=== PATIENT | female | born 1985 | race Caucasian/White ===

== ENCOUNTER 2017-01-08 16:14 | Emergency (ER) | payer OTHER ==
[~2017-01-08] VITALS: Ht 154.9 cm; Wt 47.6 kg
--- NOTE | 2017-01-08 17:37 | ED GI/GU/ABDOMINAL COMPLAINT ---
History of Present Illness General Chief Complaint: Abdominal Pain/Flank Pain Stated Complaint: ABD PAIN Source: patient Exam Limitations: no limitations Vital Signs & Intake/Output Vital Signs & Intake/Output Vital Signs Date Time Temp Pulse Resp B/P Pulse O2 O2 Flow FiO2 Ox Delivery Rate 01/08 1941 96.8 76 16 111/65 98 Room Air 01/08 1810 Room Air Room Air 01/08 1641 99.9 101 16 154/68 97 Room Air Allergies Coded Allergies: Sulfa (Sulfonamide Antibiotics) (Mild, RASH 01/08/17) doxycycline (Mild, GI UPSET 01/08/17) Reconcile Medications Norethindrone-E.estradiol-Iron (Minastrin 24 Fe Chewable Tab) 1 MG-20 MCG (24)/ 75 MG (4) TAB.CHEW 1 TAB PO DAILY IRON SUPPLEMENT (Reported) Ondansetron HCl (Zofran) 4 MG TABLET 1 TAB PO Q6-8P PRN NAUSEA Triage Note: RECEIVED 31 YO FEMALE HX IBS, OVARIAN CYSTS AND KIDNEY STONES, C/O SEVERE RLQ ABDOMINAL PAIN X 3 DAYS. STARTED GENERALIZES ABDOMINAL PAIN, NOW RLQ ONLY. + NAUSEA. Triage Nurses Notes Reviewed? yes ? N Is pt currently ? No Onset: Abrupt Duration: better Timing: recent history Quality/Severity: moderate Severity Numbers: 5 Radiation: no radiation Activities at Onset: none HPI: Patient is a 31-year-old female with a past medical history of IBS, kidney stones, ovarian cyst who presented to emergency with a 50 hour history of gradual onset of waxing and waning right-sided lower abdominal and pelvic pain. Patient initially thought it was her IBS where she took Gas-X which flatulence relieved her symptoms however the last day symptoms have been more severity of pain localized to the right lower quadrant patient has had decreased by mouth intake Last bowel movement was today no blood no melena noted. No change in symptoms after eating ibuprofen has relief symptoms Last menstrual period was 2 weeks ago. Denies any fevers chills dysuria hematuria vaginal bleeding vaginal discharge Patient states the nausea and pain has significantly improved prior to arrival Past History Travel History Traveled to [place] past 21 day No Medical History Any Pertinent Medical History? 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 No Review of Systems Review of Systems Constitutional: Reports: no symptoms. EENTM: Reports: no symptoms. Respiratory: Reports: no symptoms. Cardiovascular: Reports: no symptoms. GI: Reports: see HPI, abdominal pain. Genitourinary: Reports: no symptoms. Musculoskeletal: Reports: no symptoms. Skin: Reports: no symptoms. Neurological/Psychological: Reports: no symptoms. Hematologic/Endocrine: Reports: no symptoms. Immunologic/Allergic: Reports: no symptoms. All Other Systems: Reviewed and Negative Physical Exam Physical Exam General Appearance: no apparent distress, alert, comfortable Gastrointestinal: normal bowel sounds, soft, MILD RIGHT PELVIC PAIN nO REBOUND TENDERNESS NO PERITONEAL SIGNS NO RIGHT UPPER QUADRANT PAIN Comments: Well-developed well-nourished person in no acute distress HEENT: Normal EENT exam Neck: Supple, no lymphadenopathy, normal range of motion without pain or tenderness Back: Nontender, no CVA tenderness. Cardiovascular: Regular rate and rhythms no murmurs rubs or gallops, normal JVP Respiratory: Chest nontender. No respiratory distress.breath sounds clear to auscultation bilaterally Extremity: No edema, no calf tenderness to palpation, normal and equal pulses. Neuro: Alert oriented x3, motor sensory normal, Skin: No appreciable rash on exposed skin, skin is warm and dry. Psych: Mood and affect is normal, memory and judgment is normal. Core Measures ACS in differential dx? No Severe Sepsis Present: No Septic Shock Present: No Progress Differential Diagnosis: AAA, AMI, appendicitis, biliary colic, bowel obstruction , colon cancer, cholecystitis, diverticulitis, ectopic , endometritis, esophageal varices, gastritis, hepatitis, hernia, hemorrhoids, ischemic bowel, inflamm bowel dis, intrauterine , kidney stone, Maria Del Carmen-Melody tear, ovarian cyst, ovarian torsion, pancreatitis, PID/cervicitis, peptic ulcer, PUD/ GERD, perforated viscous, SBO, threatened AB, UTI/pyelo Plan of Care: Orders Procedure Date/time Status Add-on Test (ER Only) 01/08 1838 Active WESTERGREN SED RATE 01/08 1803 Complete C-REACTIVE PROTEIN 01/08 1803 Complete URINALYSIS 01/08 1738 Complete LIPASE 01/08 1737 Complete LACTIC ACID 01/08 1737 Complete HUMAN BETA HCG SCREEN 01/08 1737 Complete COMPREHENSIVE METABOLIC PANEL 01/08 1737 Complete CBC WITHOUT DIFFERENTIAL 01/08 1737 Complete AMYLASE 01/08 1737 Complete Laboratory Tests 01/08/171802: Anion Gap 12, Estimated GFR > 60, BUN/Creatinine Ratio 20.0, Glucose 91, Lactic Acid < 0.5 L, Calcium 9.5, Total Bilirubin 0.8, AST 20, ALT 29, Alkaline Phosphatase 51, C-Reactive Prot, Quant 8.7 H, Total Protein 7.3, Albumin 4.2, Globulin 3.1, Albumin/Globulin Ratio 1.4, Amylase 66, Lipase 84, Total Beta HCG NEGATIVE, CBC w Diff NO MAN DIFF REQ, RBC 4.34, MCV 87.3, MCH 30.8, RDW 12.8, MPV 8.1, Gran % 73.2, Lymphocytes % 18.6 L, Monocytes % 7.7, Eosinophils % 0.1, Basophils % 0.4, Absolute Granulocytes 8.1 H, Absolute Lymphocytes 2.1, Absolute Monocytes 0.9 H, Absolute Eosinophils 0, Absolute Basophils 0, PUBS MCHC 35.3, ESR Westergren 20 01/08/171801: Urine Color YEL, Urine Clarity CLEAR, Urine pH 6.0, Ur Specific [place] 1.015, Urine Protein TRACE H, Urine Ketones TRACE H, Urine Nitrite NEG, Urine Bilirubin NEG, Urine Urobilinogen 0.2, Ur Leukocyte Esterase NEG, Ur Microscopic SEDIMENT EXAMINED, Urine RBC RARE, Ur Epithelial Cells FEW, Urine Bacteria RARE H, Urine Hemoglobin NEG, Urine Glucose NEG Patient currently looks well nontoxic-appearing Afebrile Blood work was established no leukocytosis Ultrasound was unremarkable Patient declined pain medications and any nausea in the emergency room. I discussed with patient for approximately 10 minutes of worsening signs of appendicitis that she will return to the emergency room and my suspicion of this is low. Patient was able tolerate by mouth upon discharge. Upon discharge patient looks well no apparent distress and will comply with discharge instructions and had no questions. (SALUD VAN,MILLY) Diagnostic Imaging: Viewed by Me: Ultrasound. Radiology Impression: no acute abnormality Initial ED EKG: none Comments: PATIENT: THOMPSON FRANCOIS PRESENT AGE: 31 PATIENT ACCOUNT NO: [id number] : 85 LOCATION: [facility] ORDERING PHYSICIAN: MILLY VAN SERVICE DATE: 01/08/170363 EXAM TYPE: US - US-TRANSVAGINAL EXAMINATION: ULTRASOUND PELVIS CLINICAL INFORMATION: Right sided pelvic pain. LMP 12/25/2016. COMPARISON: None. TECHNIQUE: Real-time sonographic imaging of the uterus and bilateral adnexa via transvaginal and transabdominal approach. FINDINGS: The uterus is retroverted and measures 5.8 x 3.4 x 3.9 cm in sagittal, AP and transverse dimensions respectively, corresponding to a volume of 41 mL. The cervical length is 1.7 cm. The endometrial stripe measures 0.6 cm in thickness. The bilateral ovaries are visualized. The right ovary measures 3.0 x 1.2 x 1.6 cm, corresponding to a volume of 3.0 mL. The left ovary measures 2.4 x 1.0 x 2.0 cm, corresponding to a volume of 2.4 mL. Several small follicles are present within the bilateral ovaries. Arterial and venous flow are demonstrated within both ovaries. Moderate simple free pelvic fluid. IMPRESSION: No acute findings within the pelvis. Arterial and venous flow are demonstrated within both ovaries. There is a moderate amount of simple free pelvic fluid. Departure Departure Disposition: HOME OR SELF CARE Condition: Stable Clinical Impression Primary Impression: Abdominal pain Referrals: MINOO PALENCIA,[place] [facility] PATIENT HAS NO PRIMARY CARE DR (PCP/Family) Additional Instructions: As discussed if symptoms worsen return to emergency room. Continue over-the- counter ibuprofen if needed for pain and inflammation begin the prescription of Zofran for future nausea. If no better in 2 days follow-up with [facility] DR. HENNESSY Prescription of Zofran is waiting at [facility] pharmacy. Begin a 24-hour clear liquid and bland diet. Departure Forms: Customer Survey General Discharge Information Prescriptions: Current Visit Scripts Ondansetron HCl (Zofran) 1 TAB PO Q6-8P PRN NAUSEA #15 TAB
[2017-01-08] MEDS ORDERED: MINASTRIN 24 F1 EACH PO (18:10)
[2017-01-08 18:15] LABS: ABSOLUTE BASOPHIL COUNT 0 /CUMM (0.0-0.2); ABSOLUTE EOSINOPHIL COUNT 0 /CUMM (0.0-0.7); ABSOLUTE GRANULOCYTE CT 8.1 /CUMM (1.4-6.5); ABSOLUTE LYMPH COUNT 2.1 /CUMM (1.2-3.4); ABSOLUTE MONOCYTE COUNT 0.9 /CUMM (0.10-0.60); BASOPHIL % 0.4 % (0.0-2.0); EOSINOPHIL % 0.1 % (0-5); GRANULOCYTE % 73.2 % (42.2-75.2); HEMATOCRIT 37.9 % (37-47); MEAN CORPUSCULAR HGB 30.8 PG (27.0-31.0); MEAN CORPUSCULAR HGB CONC 35.3 G/DL (33.0-37.0); MEAN CORPUSCULAR VOLUME 87.3 FL (81.0-99.0); MEAN PLATELET VOLUME 8.1 FL (7.4-10.4); PLATELET COUNT 327 /CUMM (130-400); RBC DISTRIBUTION WIDTH 12.8 % (11.5-14.5); RED BLOOD CELL CT 4.34 /CUMM (4.20-5.40); WHITE BLOOD CELL COUNT 11.1 /CUMM (4.8-10.8)
[2017-01-08 19:41] VITALS: BP 111/65
--- NOTE | 2017-01-08 19:43 | ULTRASOUND REPORT ---
EXAMINATION: ULTRASOUND PELVIS CLINICAL INFORMATION: Right sided pelvic pain. LMP 12/25/2016. COMPARISON: None. TECHNIQUE: Real-time sonographic imaging of the uterus and bilateral adnexa via transvaginal and transabdominal approach. FINDINGS: The uterus is retroverted and measures 5.8 x 3.4 x 3.9 cm in sagittal, AP and transverse dimensions respectively, corresponding to a volume of 41 mL. The cervical length is 1.7 cm. The endometrial stripe measures 0.6 cm in thickness. The bilateral ovaries are visualized. The right ovary measures 3.0 x 1.2 x 1.6 cm, corresponding to a volume of 3.0 mL. The left ovary measures 2.4 x 1.0 x 2.0 cm, corresponding to a volume of 2.4 mL. Several small follicles are present within the bilateral ovaries. Arterial and venous flow are demonstrated within both ovaries. Moderate simple free pelvic fluid. IMPRESSION: No acute findings within the pelvis. Arterial and venous flow are demonstrated within both ovaries. There is a moderate amount of simple free pelvic fluid.
[2017-01-08] MEDS ORDERED: ZOFRAN4 M2 PO (20:12)
== END 2017-01-08 20:30 ==
LOC: ERH 16:14
PROVIDERS: Physician Assistant
DX: R10.2 Pelvic and perineal pain (principal)
CPT/HCPCS: 81001

== ENCOUNTER 2018-04-12 09:51 | Emergency (ER) | payer OTHER ==
[~2018-04-12 09:51] MED LIST: MINASTRIN 24 F1 EACH PO; ZOFRAN4 M2 PO
[2018-04-12 11:44] LABS: ABSOLUTE BASOPHIL COUNT 0 /CUMM (0.0-0.2); ABSOLUTE EOSINOPHIL COUNT 0 /CUMM (0.0-0.7); ABSOLUTE GRANULOCYTE CT 2.1 /CUMM (1.4-6.5); ABSOLUTE LYMPH COUNT 0.8 /CUMM (1.2-3.4); ABSOLUTE MONOCYTE COUNT 0.2 /CUMM (0.10-0.60); BASOPHIL % 0.3 % (0.0-2.0); EOSINOPHIL % 0.1 % (0-5); GRANULOCYTE % 65.6 % (42.2-75.2); HEMATOCRIT 39.6 % (37-47); MEAN CORPUSCULAR HGB 29.4 PG (27.0-31.0); MEAN CORPUSCULAR HGB CONC 33.8 G/DL (33.0-37.0); MEAN CORPUSCULAR VOLUME 86.9 FL (81.0-99.0); MEAN PLATELET VOLUME 8.9 FL (7.4-10.4); RBC DISTRIBUTION WIDTH 12.5 % (11.5-14.5); RED BLOOD CELL CT 4.56 /CUMM (4.20-5.40); WHITE BLOOD CELL COUNT 3.2 /CUMM (4.8-10.8)
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
[2018-04-12] MEDS ORDERED: ADVIL200 M1 PO (12:44)
[2018-04-12] MEDS ORDERED: ZOFRAN ODT4 M1 SL (13:56)
[2018-04-12] MEDS ORDERED: AMOXICILLIN500 M3 PO (13:56)
[2018-04-12] MEDS ORDERED: IBUPROFEN600 M1 PO (13:56)
[2018-04-12 15:34] VITALS: BP 112/70
== END 2018-04-12 15:57 ==
LOC: ERH 09:51
PROVIDERS: Physician Assistant Medical
DX: R53.83 Other fatigue (principal); R53.1 Weakness; R50.9 Fever, unspecified; R51 Headache; M79.1 Myalgia
CPT/HCPCS: 86618; 81001; 81025; 96361; 96374; 96375; J0131; J2405; J2765